=== PATIENT | female | born 1965 | race Caucasian/White ===

== ENCOUNTER 2020-05-15 15:50 | Inpatient (IN) | payer OTHER ==
[~2020-05-15] VITALS: Ht 170.2 cm; Wt 83.8 kg
--- NOTE | ~2020-05-15 | DS ---
[facility] [address] [place], [place] [address] Draft ADMISSION DATE: 05/15/2020 DISCHARGE DATE: 05/22/2020 REASON FOR ADMISSION: This 54-year-old white woman transferred from [facility] with Dr. Marcos Montalvo with a large pelvic mass and ascites. The patient presented to the emergency room in [place] with abdominal pain and fullness and a CT scan was performed by Dr. Montalvo confirming a multiloculated pelvic mass suggestive of right ovary with ascites. She has no prior history of ovarian problem, specifically no ovarian torsion or ovarian cyst. She has no family history of ovarian cancer or uterine cancer. The patient does have dysfunctional menstrual bleeding for quite some time. She has a distant history of tubal ligation as well. She was admitted for further evaluation and care. PERTINENT PHYSICAL EXAMINATION: GENERAL: Showed a pleasant white woman, who did not look systemically toxic. HEENT: Mucous membranes are reasonably moist. Trachea midline. CHEST: Clear. HEART: Regular without murmur. ABDOMEN: Distended and firm, consistent with ascites. She did not have focal tenderness or diffuse peritonitis, but was mildly tender throughout. LABORATORY STUDIES: Showed a white count of 12.4, hematocrit 47, platelets 340,000. Chem profile normal and creatinine 0.9. HOSPITAL COURSE: She was admitted with a strong suspicion of ovarian carcinoma, though other etiologies including ovarian torsion or other problem were considered of course. A CA-125 serum tumor marker was obtained, which was elevated at 74.9. Her diffuse abdominal tenderness and bloating were significant and did improve with IV fluid administration likely related to fluid losses and ultimately, she did undergo paracentesis for symptom control and assessment of the peritoneal fluid. Subsequent evaluation showed no sign of malignant cells within the peritoneal fluid. Given her large mass of the pelvis, which is essentially consumed all of the pelvis and her ascites, which at the time was of uncertain malignancy. Recommendation was made for PATIENT NAME: THAIS MENDEZ DISCHARGE SUMMARY DATE OF : 67 REPORT #: [id number] PHYSICIAN: MADALYN RAMIREZ MD PCP: MARCOS MONTALVO MD REPORT IS CONFIDENTIAL AND NOT TO BE RELEASED WITHOUT AUTHORIZATION [facility] [address], [place] [address] Draft excision of the mass, probable hysterectomy, omentectomy, retroperitoneal lymph node dissection, and other indicated procedures for a presumptive diagnosis of ovarian carcinoma. On May 19, 2020, she underwent exploration of the abdomen, excision of what turned out to be a left giant pelvic mass (ovarian mass) with total abdominal hysterectomy, bilateral salpingo-oophorectomy, omentectomy, cul-de-sac biopsy, collection of peritoneal fluid for cytology, brush biopsy of right hemidiaphragm and retroperitoneal lymph node dissection, mostly in the aortocaval area and infracaval area centrally. Data Specialist was Dr. Winn. 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 Appendectomy was performed as well given that finding. Postoperatively, she had a considerable amount of incisional pain despite a non-opiod approach to her pain management including TAP blocks and other interventions. 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 She had progressive improvement, was begun on clear liquids on 1st postoperative day, which she tolerated well. Progressive intake of an advancement of her diet was noted and by day of discharge, she is ambulating well, passing flatus without problem, has incisional pain, well controlled with both opioid and non-opioid medications and is doing well. The paracentesis cytology showed no evidence of malignant cells, which was somewhat surprising, but we await final pathology of other fluid obtained at time of operation as well. FOLLOWUP PLAN: She is return to see me in approximately 3-4 weeks. She will likely be a candidate for adjuvant chemotherapy depending on the pathologic findings ultimately. She is advised to lift no more than 20 pounds for the next 4 weeks. She is encouraged to ambulate daily. She will leave Steri-Strips on. DISCHARGE DIAGNOSES: 1. 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 2. Status post excision of giant left pelvic mass with total abdominal hysterectomy, bilateral salpingo-oophorectomy, omentectomy, appendectomy, cul-de-sac biopsy, collection of peritoneal fluid for cytology and brush biopsy of right hemidiaphragm and retroperitoneal lymph node dissection. 3. Distant history of tubal ligation. 4. Dysfunctional uterine bleeding. PATIENT NAME: THAIS MENDEZ DISCHARGE SUMMARY DATE OF : 67 REPORT #: [id number] PHYSICIAN: MADALYN RAMIREZ MD PCP: MARCOS MONTALVO MD REPORT IS CONFIDENTIAL AND NOT TO BE RELEASED WITHOUT AUTHORIZATION [facility] [address] [place] [id number] Draft MD BRANDON Garcia/MODL /[id number] cc: Marcos Montalvo MD Copies: MARCOS MONTALVO MD ~ PATIENT NAME: THAIS MENDEZ DISCHARGE SUMMARY DATE OF : 67 REPORT #: [id number] PHYSICIAN: MADALYN RAMIREZ MD PCP: MARCOS MONTALVO MD REPORT IS CONFIDENTIAL AND NOT TO BE RELEASED WITHOUT AUTHORIZATION
--- NOTE | 2020-05-15 17:38 | NUR ---
PT AMBULATES TO MED SURG. ORIENTED TO ROOM CALL LIGHT IN HAND. BOYFRIEND PRESENT IN THE ROOM. PT VERBALIZES UNDERSTANDING NPO.
--- NOTE | 2020-05-15 18:07 | NUR ---
pt resting eyes closed. dr do in to see her
--- NOTE | 2020-05-15 18:30 | NUR ---
DR RAMIREZ IN TO SEE PT DISCUSSES DIAGNOSTIC PLAN GOING FORWARD ALL QUESTIONS ANSWERED, PRESENT IN THE ROOM. PT OKAY'D FOR CLEAR LIQUIDS, BROTH AND JELLO PROVIDED. PAIN 4/ WAITING FOR MD ORDERS
--- NOTE | 2020-05-15 19:00 | NUR ---
RECEIVED CHARGE REPORT FROM [facility]. PT WITH NO NEEDS AT THIS TIME.
--- NOTE | 2020-05-15 19:42 | NUR ---
REPORT RECEIVED FROM DAY SHIFT RN. PT LYING IN BED ALERT AND ORIENTED EATING JELLO. IVF INFUSING. PT DENIES NEEDS AT THIS TIME. WHITE BOARD UPDATED. CALL LIGHT IN REACH.
--- NOTE | 2020-05-15 21:15 | NUR ---
V/S AND I&O TAKEN AND RECORDED. CREAM OF MUSHROOM, VEGETABLE BROTH AND CHOCOLATE PUDDING PROVIDED.
--- NOTE | 2020-05-15 21:30 | NUR ---
EVENING ASSESSMENT COMPLETE. SCHEDULED MEDS ADMINISTERED. PRN ADMINISTERED FOR 5/10 ABD PAIN. PT REPORTS FEELING BLOATED. ABD FIRM AND DISTENDED. BOWEL TONES ACTIVE. DENIES NAUSEA. FULL LIQUIDS PROVIDED. IVF INFUSING PER ORDER. WARM BLANKET PROVIDED. PT DENIES QUESTIONS OR CONCERNS. CALL LIGHT IN REACH.
--- NOTE | 2020-05-15 23:30 | NUR ---
PT RESTING IN BED WITH EYES CLOSED, NAD. RESPIRATIONS EVEN AND UNLABORED.
--- NOTE | 2020-05-16 01:57 | NUR ---
VS AND I&O COMPLETE. PT UP TO BR WITH MINIMAL ASSIST TO VOID 700 ML CONCENTRATED URINE. GAIT STEADY. BACK TO BED, JOSE F [place]. REPORTS PAIN IS TOLERABLE AND DENIES PRN FOR PAIN AT THIS TIME. PUDDING PROVIDED PER REQUEST. IN ROOM. NO FURTHER NEEDS.
--- NOTE | 2020-05-16 04:11 | NUR ---
PT RESTING IN BED WITH EYES CLOSED, NAD.
--- NOTE | 2020-05-16 05:21 | NUR ---
PATIENT PROVIDED WITH BROTH AND PUDDING. VITALS AND I&O COMPLETED. GUEST IN ROOM AND WAS ASKED IF HE NEEDED ANYTHING. GUEST DENIES ANY NEEDS. PATIENT WAS ASKED IF SHE WANTED TO GET GET UP TO USE THE RESTROOM. PATIENT DENIED NEEDING TO USE THE RESTROOM TO VOID. MYRA MUNOZ IN ROOM.
--- NOTE | 2020-05-16 05:35 | NUR ---
VS AND I&O COMPLETE. PT DENIES NAUSEA. PRN ADMINISTERED FOR C/O BACK AND ABD PAIN. BROTH AND PUDDING PROVIDED. ASSESSMENT COMPLETE. ABD REMAINS DISTENDED AND FIRM. BOWEL TONES ACTIVE. SPOUSE IN ROOM. NO FURTHER NEEDS AT THIS TIME. CALL LIGHT IN REACH.
--- NOTE | 2020-05-16 07:27 | NUR ---
this rn received report from rené cerna. pt sitting up in bed with pts next to her. pts a bit tearful this am. pt states that her pain level is good and is planning to go for a walk in a bit
--- NOTE | 2020-05-16 07:32 | NUR ---
pt up doing laps at this time. pt steady on her feet
--- NOTE | 2020-05-16 08:16 | NUR ---
Pt. got up and took a shower independantly. DIRECTOR HARDWARE wrapped IV site. Bed linens changed, room picked up. no other needs at this time. call light with in reach.
--- NOTE | 2020-05-16 08:49 | NUR ---
this rn in pts room with [facility] nursing education specialist mo. pt states that she is feeling bloated in her abdomen at this time. pt states that her pain is well managed at this time. this rn educated pt on the paracentesis produre, pt states understanding and all questions answered at this time.
--- NOTE | 2020-05-16 09:30 | NUR ---
Pt and spouse resting in bed. State they live in [place] in a 2 story home and only use lower floor. Multiple steps down to get to house but have new steps with good hand rails. They have 5 adult children grandchildren. 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 She is worried about her diagnosis, but spouse is very supportive. He is retired and will stay home with pt, complete house hold chores, shop, and transport as needed if pt has surgery. Ultimate plan is for pt to dc to home when she can be discharged.
--- NOTE | 2020-05-16 09:49 | NUR ---
[facility] med student did v/s and I&Os.
--- NOTE | 2020-05-16 11:00 | NUR ---
[facility] GOVERNMENT AFFAIRS SPECIALIST KELLEN IN PTS ROOM TO CHECK ON PT. PT STATES THAT HER PAIN IS TOLERABLE AT THIS TIME. KELLEN ALSO DICUSSED WITH PT THAT WILL BE IN AFTER A BIT.
--- NOTE | 2020-05-16 12:14 | NUR ---
PT RESTING IN BED WITH . PT SAID SHE FEELS MUCH BETTER, REQUESTED TO HAVE HYDRAULIC ROCKBREAKER OPERATOR VISIT TODAY. WILL INFORM FR CHAVEZ. GAVE BLESSING, WILL FOLLOW
--- NOTE | 2020-05-16 12:25 | NUR ---
this rn in pts room with to assist with pt having a paracentesis. pt tolerated well. able to get 2.5l off of pts abdomen.
--- NOTE | 2020-05-16 15:17 | NUR ---
MED REC COMPLETE
--- NOTE | 2020-05-16 16:31 | NUR ---
this rn in to check on pt at this time. pt appears to be resing in bed with respirations noted.
--- NOTE | 2020-05-16 19:00 | NUR ---
CHARGE NURSE REPORT RECEIVED FROM DAY SHIFT. PT IN ROOM, NO NEEDS AT THIS TIME.
--- NOTE | 2020-05-16 19:30 | NUR ---
BEDSIDE REPORT RECEIVED FROM MYRA ARROYO. pt RESTING IN BED. DENIES ANY PAIN. NO REQUESTS AT THIS TIME. IV NOTED TO BE LEAKING, FLUIDS DISCONNECTED. CALL LIGHT IN REACH.
--- NOTE | 2020-05-16 21:00 | NUR ---
pt AMBULATING IN HALLWAY WITH . IVF INFUSING WNL.
--- NOTE | 2020-05-16 21:10 | NUR ---
NEW IV STARTED LEFT FOREARM WNL, pt TOLERATED WELL. UP TO RESTROOM INDEPENDENTLY FOR VOID AND BACK TO BED. IVF INFUSING WNL ORDERED. pt DENIES PAIN AT THIS TIME. ABD DISTENDED, SOFT, BOWEL TONES ACTIVE X 4. DENIES PAIN WITH PALPATION, "IT'S NOT LIKE BEFORE". VSS. CALL LIGHT AND PERSONAL SUPPLIES IN REACH. ICE WATER REFILLED. pt DISCUSSING CA DIAGNOSIS, PLAN WITH THIS RN, POSITIVE OUTLOOK. pt STATES SHE WOULD LIKE TO VISIT WITH BROWN SOURER TOMORROW, GASOLINE TESTER NOTIFIED.
--- NOTE | 2020-05-16 22:26 | NUR ---
CALL LIGHT ANSWERED. SHAILA MARQUEZ AND SHU BALDERAS.
--- NOTE | 2020-05-16 23:37 | NUR ---
CHECKED ON pt. RESTING IN BED WITH , EYES CLOSED, BREATHING UNLABORED. LIGHTS OFF IN ROOM.
--- NOTE | 2020-05-17 00:54 | NUR ---
pt AMBULATING IN HALLWAY INDEPENDENTLY. IVF INFUSING WNL ORDERED. pt DENIES PAIN. JELLO PROVIDED REQUESTED. NO ADDITIONAL NEEDS.
--- NOTE | 2020-05-17 02:09 | NUR ---
CALL LIGHT ANSWERED. IV PUMP ALARMING, DISTAL AIR. IVF NOW INFUSING WNL ORDERED. pt RESTING IN BED ON SIDE. ALSO IN BED. pt APPEARS RELAXED, BREATHING UNLABORED. LIGHTS OFF IN ROOM.
--- NOTE | 2020-05-17 04:59 | NUR ---
pt AMBULATING HALLWAY MULTIPLE TIMES THIS SHIFT INDEPENENDENLY. NO COMPLAINTS OF PAIN. ABD DISTENDED, SOFT, BOWEL TONES ACTIVE, NON TENDER WITH PALPATION. IVF INFUSING WNL THROUGHOUT SHIFT.
--- NOTE | 2020-05-17 06:45 | NUR ---
pt AWAKE WHEN RN ENTERS ROOM. RESTING IN BED WITH . pt RATES PAIN 6/10 IN ABDOMEN AND BACK, PRN MEDICATION ADMINISTERED. BOWEL TONES ACTIVE X 4, ABD SOFT, DISTENDED, TENDER WITH PALPATION. VSS. URINE HAT EMPTIED. JELLO, PUDDING, CRACKERS PROVIDED. IVF INFUSING WNL ORDERED. CALL LIGHT IN REACH.
--- NOTE | 2020-05-17 07:21 | NUR ---
this rn received report from kanwal cerna. pt awake and sitting up in bed. pt states that her pain is well managed this am. pt states that needs nothing at this time and states that no new questions.
--- NOTE | 2020-05-17 08:50 | NUR ---
THIS RN IN PTS ROOM TO GIVE PT HER MORNING MEDS AND DO MORNING ASSESSMENT. PT STATES THAT SHE IS HAVING SOME INCREASED ABDOMINAL PAIN. THIS RN OFFERED PT IV TYLENOL, PT STATES THAT SHE ISN'T READY TO TAKE A MED YET. THIS RN OFFERED PT A HEAT PACK FOR THE PAIN. PT STATED THAT THIS HELPED HER PAIN AND SHE WAS NOT INTERESTED IN ANYMORE PAIN MEDS.
--- NOTE | 2020-05-17 09:01 | NUR ---
PATIENT AWAKE IN BED, IN ROOM. VITALS AND I&OS CHARTED. ES IN TO MOP. CALL LIGHT IN REACH
--- NOTE | 2020-05-17 09:45 | NUR ---
pt up walking halls with her . pt steady on her feet with no problems at this time
--- NOTE | 2020-05-17 10:00 | NUR ---
Spoke with pt while she is walking in the [place]ar[place]. Pt denies c/o.
--- NOTE | 2020-05-17 11:15 | NUR ---
PATIENT SITTING UP IN BED, IN ROOM. PATIENT POSSIBLY INTERESTED IN SHOWER LATER TODAY.
--- NOTE | 2020-05-17 11:41 | NUR ---
this rn provided pt with apple juice, pt stated that she is getting tired of water
--- NOTE | 2020-05-17 12:55 | NUR ---
pt up walking halls at this time with her daughter
--- NOTE | 2020-05-17 13:38 | NUR ---
PT ALERT, ORIENTED AND RESTING IN BED WITH HER . PT IS SNACKING ON CHIPS, SEEMED COMFORTABLE. PT MENTIONED AT SHE IS DOING BETTER. PT WOULD LIKE TO HAVE THE SUBSYSTEMS ENGINEER IN TODAY. INFORMED FR CHAVEZ. GAVE BLESSING, WILL FOLLOW
--- NOTE | 2020-05-17 13:45 | NUR ---
THIS RN IN PTS ROOM WITH TO DISCUSS PTS TREATMENT PLAN. PT STATES UNDERSTANDING OF TREATMENT PLAN AND IS MOTIVATED FOR SURGERY. PT STATES THAT HER PAIN IS WELL CONTROLLED AND THAT SHE PLANS TO GO FOR ANOTHER WALK WITH HER DAUGHTER THIS AFTERNOON. PTS DAUGHTER ASKING IF THERE WAS A CERTAIN NUTRITION FOR PRIOR TO CHEMO IF THAT'S THE ROUTE SHE IS GOING TO GO. THIS RN WILL HAVE LOBITO FROM DIETARY FOLLOW UP WITH PT
--- NOTE | 2020-05-17 15:30 | NUR ---
Spoke with Dr. Chapa. Pt does not want to go out of town for surgery and he has agree to complete surgery on Friday. Pt is very happy with descision.
--- NOTE | 2020-05-17 15:49 | NUR ---
CRUZ LET ME KNOW PATIENT WAS WONDERING ABOUT NUTRITION FOR CANCER TREATMENT. PATIENT MAY END UP NEEDING CHEMO IN THE FUTURE FOR OVARIAN CANCER. HER MAIN QUESTION IS WHAT SHOULD SHE BE EATING IF SHE DOES END UP ON CHEMO. I EXPLAINED THAT CONSUMING ENOUGH PROTEIN IS REALLY IMPORTANT AND TO EAT PROTEIN THROUGHOUT THE DAY INSTEAD OF ONE LARGE AMOUNT ONCE A DAY. SHE LIKES BEEF, EGGS, MILK, COTTAGE CHEESE, AND BEANS. ALSO EXPLAINED TO EAT MORE PLANT-BASED FOODS SUCH GETTING AT LEAST 5 SERVINGS OF A FRUITS/VEGGIES IN EACH DAY AND WHOLE GRAINS FOR MORE NUTRITIONAL VALUE AND FIBER. SHE PREFERS TO AVOID ARTIFICIAL SWEETENERS SO IF SHE DECIDES TO BUY A PROTEIN POWDER SHE WILL NEED TO LOOK AT THE INGREDIENTS SINCE A LOT OF PROTEIN POWDERS IN STORES LOCALLY HAVE ARTIFICIAL SWEETENERS IN THEM. SHE MOST LIKELY WILL NEED TO BUY A PROTEIN POWDER ONLINE. SHE ASKED IF THERE ARE SUPPLEMENTS SHE SHOULD BE TAKING BUT I COULDN'T SPEAK TO THAT SINCE I DON'T KNOW HER WHOLE SITUATION AND PLAN GOING FORWARD. I PROVIDED HER A HANDOUT ON NUTRITION DURING AND AFTER CANCER TREATMENT AND ANOTHER ON ADDING PROTEIN TO FOODS. NO OTHER QUESTIONS AT THIS TIME. WILL REMAIN AVAILABLE IF NEEDED.
--- NOTE | 2020-05-17 17:37 | NUR ---
PATIENT AWAKE IN BED, IN ROOM, BOTH EATING DINNER. VITSL AND I&OS CHARTED. CALL LIGHT AND PERSONAL ITEMS WITHIN REACH
--- NOTE | 2020-05-17 18:55 | NUR ---
THIS RN PROVIDED PT WITH A HEAT PACK FOR COMFORT AT THIS TIME. PT DENIES THE NEED FOR PAIN MEDS.
--- NOTE | 2020-05-17 19:48 | NUR ---
PATIENT WALKING THE HALLS WITH HER , NO NEEDS RIGHT NOW.
--- NOTE | 2020-05-17 20:33 | NUR ---
PATIENT DENIES PAIN OR NAUSEA. PATIENT SITTING IN BED VISITING WITH . CALLED PROFESSOR OF VISUAL ARTS TO GET SOME PUDDING FOR PATIENT. SHOWER SET UP AND LEFT WRIST WRAPPED FOR PATIENT TO TAKE SHOWER. CALL LIGHT IN REACH.
--- NOTE | 2020-05-17 21:48 | NUR ---
BROUGHT PUDDING TO PT'S ROOM. SHE IS FINISHED SHOWERING. UNWRAPPED IV AND IV FLUID IS NOW INFUSING. PT DENIES FURTHER NEEDS. CALL LIGHT IS CLOSE.
--- NOTE | 2020-05-18 00:05 | NUR ---
PATIENT RESTING IN BED EYES CLOSED, RESPIRATIONS REGULAR AND EVEN, PATIENT'S LAYING IN BED WITH HER CALL LIGHT IN REACH.
--- NOTE | 2020-05-18 02:15 | NUR ---
PATIENT WAS UP WALKING AROUND THE UNIT, WENT BACK TO BED, PT HAS BEEN DOING FINE.
--- NOTE | 2020-05-18 03:02 | NUR ---
PATIENT RESTING QUIETLY IN BED, EYES CLOSED, RESPIRATIONS REGULAR AND EVEN, CALL LIGHT IN REACH.
--- NOTE | 2020-05-18 05:15 | NUR ---
PATIENT HAS SLEPT OFF AND ON, PATENT HAS WALKED MULTIPLE LAPS ON 2 DIFFERENT OCCASIONS ON THIS SHIFT AROUND THE UNIT. PATIENT'S HAS REMAINED IN THE ROOM WITH HER. PATIENT DRINKING AND EATING WELL. PATIENT TOOK A SHOWER LAST NIGHT. PATIENT HAS HAD NO PAIN AND VERY FEW NEEDS. PATIENT HAS REMAINED INDEPENDENT IN THE ROOM. CALL LIGHT IS IN REACH.
--- NOTE | 2020-05-18 07:21 | NUR ---
0700: Report received from Jayesh RENTERIA. Pt resting in her bed with no complaints or needs at this time, call adela within reach.
--- NOTE | 2020-05-18 09:20 | NUR ---
PT RESTING IN HER BED AND SHE STATES SHE HAS ABD PAIN AT A 4 WHICH IS ACCEPTABLE AND SHE DENIES ANY NAUSEA OR OTHER PROBLEM. PT STATES HER PAIN IS MUCH BETTER THAT IT WAS WHEN SHE CAME HERE. ASSESSMENT COMPLETED.
--- NOTE | 2020-05-18 10:21 | NUR ---
Pt resting in her room and she denies any needs at this time.
--- NOTE | 2020-05-18 13:21 | NUR ---
PT STATES HER ABD PAIN IS A 1/10 AND THIS IS ACCEPTABLE TO HER. SHE WALKED ABOUT 6 LAPS IN THE HALLS WITH HER DAUGHTER AND IS NOW RESTING IN HER BED. SHE DENIES ANY NEW PROBLEMS. SEE ASSESSMENT.
--- NOTE | 2020-05-18 13:27 | NUR ---
PT ALERT, ORIENTED AND JUST FINISHING UP PHONE CALL. PT STSTED SHE WILL HAVE SURGERY FRI, SEEMS AT [place] WITH THIS DECISION. PT MENTIONED THAT HER DAUGHTER IS COMING IN AND THIS SEEMED TO CHEER HER. PT REQUESTED A VISIT FROM THE COMPRESSOR SERVICE TECHNICIAN TODAY. INFORMED FR VAUGHAN. GAVE BLESSING AND HAD PRAYER WITH PT. WILL FOLLOW
--- NOTE | 2020-05-18 16:21 | NUR ---
Pt resting in her bed and she denies any pain or problems.
--- NOTE | 2020-05-18 17:26 | NUR ---
Cherise was talked to about the visitor policy and she raised her voice and states "I can't be alone". She states she will walk to the front door if she has too and she will not sit in her room by herself. Her spouse states he will be here and that she is not leaving. The pt continues to have a raised voice and she states, "I'm pissed you left me here by myself", she was speaking to her spouse. Pt remains "Pissed" and she states a walk may help her and she got up and is walking in the halls at this time.
--- NOTE | 2020-05-18 17:45 | NUR ---
Pt returned from her walk and she is heard yelling and cussing in her room with the door closed and her spouse in the room. The charge nurse was notified and security was called. Security is outside the room in the [place]arcon at this time.
--- NOTE | 2020-05-18 17:54 | NUR ---
Dr Xavier called and updated to the recent events.
--- NOTE | 2020-05-18 18:02 | NUR ---
RT COLLECTED COVID 19 SWAB WITH NO COMPLICATIONS. RT USED THE CEPHEID RAPID TEST THROUGH [facility] PER DR REQUEST AT THIS TIME.
--- NOTE | 2020-05-18 19:00 | NUR ---
REPORT RECEIVED FROM ISH RENTERIA. PT HAS NO NEEDS AT THIS TIME, SPOUSE AT BEDSIDE. WILL CONTINUE TO MONITOR
--- NOTE | 2020-05-18 20:05 | NUR ---
SCHEDULED MEDICATIONS ADMINISTERED, PT REQUESTS TO TAKE SHOWER, IV WRAPPED. SPOUSE IN ROOM. MADE PLAN WITH PT FOR EVENING ROUTINE. CALL LIGHT IN REACH, NO OTHER NEEDS AT THIS TIME.
--- NOTE | 2020-05-18 21:00 | NUR ---
IN RM TO GET PT VITALS, MEASUREMENT AND VERIFICATION ENGINEER IN RM FOR IV, PT IS BACK FROM THE SHOWER, PUDDING PROVIDED, NO FURTHER NEEDS AT THIS TIME
--- NOTE | 2020-05-18 21:12 | NUR ---
PT IS DONE TAKING HER SHOWER. NEW BAG OF LR IS NOW INFUSING. PT REPORTS HAVING A BAD DAY AND STATES SHE IS STRESSED. PT ASKED FOR AN ADVANCED DIRECTIVES PACKET THAT SHE WILL COMPLETE ALONG WITH ONE FOR HER . CLEANED UP ROOM A BIT AND PT DENIES FURTHER NEEDS.
--- NOTE | 2020-05-18 21:15 | NUR ---
ROUNDED ON PATIENT, SITTING UP ON COUCH WITH SPOUSE. IVF INFUSING WNL. PT STATES NO NEEDS.
--- NOTE | 2020-05-18 23:57 | NUR ---
ROUNDED ON PATIENT, HER AND SPOUSE BOTH SLEEPING ON COUCH. NO APPARENT NEEDS AT THIS TIME. IVF INFUSING. CALL LIGHT IN REACH.
--- NOTE | 2020-05-19 02:04 | NUR ---
ROUNDED ON PATIENT, ON COUCH WITH SPOUSE, RESTING W EYES CLOSED. IVF INFUSING WNL. CALL LIGHT IN REACH, NO APPARENT NEEDS AT THIS TIME.
--- NOTE | 2020-05-19 04:34 | NUR ---
ROUNDED ON PATIENT, RESTING ON THE COUCH WITH SPOUSE. IVF INFUSING WNL. NO NEEDS AT THIS TIME. WILL CONT TO MONITOR.
--- NOTE | 2020-05-19 06:00 | NUR ---
VITALS AND I/O'S COMPLETE, LR ON STRAIGHT TUBING IN ROOM. PRE PROC CHECKLIST INITIATED. PT RESTING ON COUCH WITH SPOUSE, IVF INFUSING WNL. NO NEEDS AT THIS TIME. CALL LIGHT IN REACH
--- NOTE | 2020-05-19 08:13 | NUR ---
Lying in bed, on side. Eyes closed. Respirations even and unlabored. Call light in reach. Bed rails up X2.
--- NOTE | 2020-05-19 08:32 | NUR ---
Assessment completed. Educated for need to complete surgical wipe down with instructions, verbal and written given. New, clean gown provided as well. Verbalizes understanding. AM medcations given as scheduled. Denies pain this AM. Spouse at bedside. Call light in reach. Bed rails up X2. Denies other needs.
--- NOTE | 2020-05-19 09:40 | NUR ---
Patient taken to surgery by Michelle Coats RN/Surgery, via bed.
--- NOTE | 2020-05-19 11:27 | NUR ---
PT HAS BEEN TAKEN TO OR FOR SURGERY. NO FAMILY WAITING IN RM. WILL FOLLOW
--- NOTE | 2020-05-19 14:49 | NUR ---
05/19/20 Zeina9 Janki Mcclellan 1438 PATIENT ARRIVES TO PACU UNRESPONSIVE TO PAIN. OCCASIONAL JAW THRUST FOR AIRWAY SUPPORT. MASK AT 6 LITERS. 1445 PATIENT CONTINUES TO BE UNRESPONSIVE TO PAIN. RESP EVEN AND UNLABORED, MASK CONTINUES AT 6 LITERS.
--- NOTE | 2020-05-19 16:30 | NUR ---
Patient arrives from PACU in bed with MYRA Shearer. Patient states multiple times pain in abdomen. Unable to rate, states it hurts a lot. IV fluids changed to LR at 85 mL/hr by pump, Toradol given as prescribed. Assessment completed. Spouse at bedside.
--- NOTE | 2020-05-19 17:04 | NUR ---
Rating pain 9/10. Dressing remains intact. Vitals WNL.
--- NOTE | 2020-05-19 17:06 | NUR ---
PATIENT LETHARGIC BUT EASY TO AWAKE. REPORTS PAIN LEVEL 9/10 AFTER TORADOL GIVEN AN HOUR AGO. WATER AND ICE CHIPS GIVEN. CLEARS DINNER TRAY ORDERED. DRESSING INTACT. SPOUSE AT THE BEDSIDE. CALL LIGHT WITHIN REACH. ICE PACKS OFFERED, PATIENT REFUSED. REMAINS LETHARGIC AND ON 2L O2. WILL CONTINUE TO MONITOR.
--- NOTE | 2020-05-19 17:50 | NUR ---
CONTINUES TO STATE, "IT HURTS SO BAD." MULTIPLE TIMES WHILE STAFF IN ROOM. CONTINUES RATING PAIN 10/10. YELLING OUT "OW" WELL, CAN BE HEARD AT NURSE'S STATION. DR. RAMIREZ NOTIFIED. TELEPHONE ORDERS READ BACK DR. RAMIREZ/Chad CALERORN FOR MORPHINE 2MG IV X1 NOW. PATIENT NOTIFIED OF ORDER.
--- NOTE | 2020-05-19 18:08 | NUR ---
Continues to complain of pain. Analgesic administered. On room air at this time. Vitals obtained. Tolerating clear liquids. Dressing remains clean, dry and intact.
--- NOTE | 2020-05-19 18:34 | NUR ---
States pain is improving. "It's not good, but it's better." Denies other needs at this time. Continues to tolerate clear liquids at this time.
--- NOTE | 2020-05-19 19:20 | NUR ---
REPORT RECEIVED FROM ANGLE RENTERIA. PT RESTING IN BED, STATES PAIN IS "RAMPING UP" AT THIS TIME. PRN MEDS HAD BEEN GIVEN AT 1800. BRANCH ASSOCIATE IN ROOM TO TAKE VITALS. AT BEDSIDE. CALL LIGHT IN REACH, WILL CONTINUE TO MONITOR
--- NOTE | 2020-05-19 19:29 | NUR ---
PTS TO RN STATION, STATES THAT PT IS HAVING UNCONTROLLED PAIN. PT CAN BE HEARDING MOANING AUDIBLY FROM RN STATION. PT THEN UTILIZES CALL LIGHT, IS GRIMACING AND CRYING IN PAIN. RATES PAIN 10/10. PRIMARY RN NOTIFIED. PRN TO BE ADMINISTERED. CALL LIGHT IN REACH.
--- NOTE | 2020-05-19 19:40 | NUR ---
PT STATING 10/10 PAIN, MOANING AND YELLING OUT TO NURSES STATION FREQUENTLY. DR RAMIREZ PHONED, NEW ORDER FOR MORPHINE DITCH REPAIRER RECEIVED, READ BACK TO CLARIFY.
--- NOTE | 2020-05-19 19:59 | NUR ---
IN TO [facility], DENTAL LABORATORY ASSISTANT IN WELL, PICKED UP 'S DINNER TRAY, PT WASN'T DONE WITH HER TRAY, NO FURTHER NEEDS AT THIS TIME
--- NOTE | 2020-05-19 20:30 | NUR ---
SCHEDULED MEDICATIONS ADMINISTERED. PT CONTINUES TO C/O PAIN, REPOSITIONED, WARM BLANKETS PROVIDED, AWAITING VERIFICATION OF AUTO BATTERY BUILDER ORDER. AT BEDSIDE, ENGAGED IN CARE. GOMEZ CARE COMPLETE, WNL. PT ON RA, CPOX IN PLACE, AT 96%. SCDS ON. CALL LIGHT IN REACH.
--- NOTE | 2020-05-19 21:25 | NUR ---
CONTRACTS SPECIALIST PUMP SET UP. PT EDUCATED ALONG WITH . VERIFIED WITH STILL CLEANER. CALL LIGHT IN REACH, WILL CONTINUE TO MONITOR.
--- NOTE | 2020-05-19 22:11 | NUR ---
SCHEDULED MEDICATIONS ADMINISTERED. PT CONTINUES TO C/O PAIN, REPOSITIONED, WARM BLANKETS PROVIDED, AWAITING VERIFICATION OF DIABETES EDUCATION COORDINATOR ORDER. AT BEDSIDE, ENGAGED IN CARE. GOMEZ CARE COMPLETE, WNL. PT ON RA, CPOX IN PLACE, AT 96%. SCDS ON. CALL LIGHT IN REACH.
--- NOTE | 2020-05-19 22:21 | NUR ---
ROUNDED ON PATIENT. IN BED WITH EYES CLOSED, BREATHING REGULAR. OPENS EYES TO VOICE, STATES PAIN IS "BETTER". AT BEDSIDE. STATES NO NEEDS. WILL CONTINUE TO MONITOR.
--- NOTE | 2020-05-20 00:05 | NUR ---
CALL LIGHT ANSWERED, PT STATES POTATO CHIP COOKER MACHINE NOT WORKING, MAX DOSE REACHED. PT EDUCATED REGARDING LOCKOUT DOSAGE AND TIMING OF MEDS. PT REPORTS 4/10 PAIN CURRENTLY BUT STATES "ITS NOTHING LIKE IT WAS". STATES NO OTHER NEEDS AT THIS TIME, CALL LIGHT IN REACH.
--- NOTE | 2020-05-20 01:52 | NUR ---
MANAGER DRUG SYRINGE CHANGED, PT REPORTS 4/10 PAIN CURRENTLY BUT STATES IT IS TOLERABLE. SCHEDULED MEDS ADMINISTERED. TECHNOLOGY INFUSION SPECIALIST IN ROOM FOR VITALS. PT REPORTS NO OTHER NEEDS AT THIS TIME.
--- NOTE | 2020-05-20 01:59 | NUR ---
IN TO GET 2 AM VITALS, NO FURTHER NEEDS
--- NOTE | 2020-05-20 02:45 | NUR ---
Rounded on patient. Resting in bed with eyes closed. Breathing is even and unlabored, MANUFACTURING ENGINEERING MANAGER pump working WNL. IVF infusing WNL. CPOX in place, 95% on RA. Call light in reach.
--- NOTE | 2020-05-20 04:21 | NUR ---
Call light answered, IV pump alarming, new bag IVF hung. Assessment complete. Pt states pain 2/10, midline visualized, dressing C/D/I. Abdomen tender but pt states tolerable. CPOX in place, reading at 96% on RA. Pt demonstrating competency using COAT CHECK ATTENDANT. Call light in reach
--- NOTE | 2020-05-20 05:14 | NUR ---
IN TO GET PT VITALS WITH RN, PATRICIA EMPTIED AT THIS TIME, TOOK PT's LEFTOVER DINNER TRAY OUT, PT PROVIDED WITH A JELLO, NO FURTHER NEEDS AT THIS TIME
--- NOTE | 2020-05-20 06:01 | NUR ---
VITALS AND I/OS COMPLETE. PATIENT HAS BEEN USING BURR PICKER PUMP, STATES PAIN IS COMPLETELY TOLERABLE NOW. IVF INFUSING WNL. VSS. MIDLINE INCISION COVERED WITH ACTECOTE, C/D/I. CALL LIGHT IN REACH, AT BEDSIDE
--- NOTE | 2020-05-20 06:14 | NUR ---
Pt had reported severe 10/10 pain at start of shift, MD called, orders for CUTTER MACHINE TENDER pump received. Pt now reports 2/10 tolerable discomfort, resting in bed. Midline incision covered with Actecote, C/D/I. ABD tender, bowel tones active. CPOX in place, 90-96% on RA. IVF infusing WNL. SCDS on. Tolerating clear liquid diet. in room. Calls appropriately.
--- NOTE | 2020-05-20 07:25 | NUR ---
Report from MYRA Jaramillo. Patient awake in bed. Denies needs at this time. States she is very tired and feels weak. Informed goal is to get up SRINATH and walk this AM. Verbalizes understanding. Call light in reach. Bed rails up X2, spouse at bedside.
--- NOTE | 2020-05-20 07:43 | NUR ---
Recieved report from maintenance technician 3rd shift RN. Patient resting in bed with no complaints of pain at this time. Spouse at the bedside and the call light is within reach. Patient agreed to walk this morning before 0900. Will assess further progress at that time.
--- NOTE | 2020-05-20 09:57 | NUR ---
Patient attempted amublating at 0850. Upon sitting at the edge of the bed became nauseated and lightheaded. Patient reported dizziness at this time. Zofran administered per PRN order for nausea. Patient was able to walk into the hallway but could only tolerate a few steps before turning around and needing to rest. Patient desat to 85% O2 on room air. 1L O2 administered, patient sats only increased to 88%. Currently maintaining O2 saturation between 93%-95% on 2L O2. Assessment completed. Patient reports pain level on 06/28. Pain management goal currently achieved. Dressing intact with scant amount of drainage. Patient able to tolerate slight abdominal palpation. Patient resting quietly in bed with clears breakfast tray. Call light within reach. CAN REPAIRER control within reach. Denies any further needs at this time.
--- NOTE | 2020-05-20 10:57 | NUR ---
Patient resting in bed quietly with spouse at the bedside. Reports "feeling tired and just wanting to sleep". Reports no other needs at this time. Call light within reach. Bedrails up x2. EXCHANGE TELLER control within reach. Will continue to monitor.
--- NOTE | 2020-05-20 11:32 | NUR ---
Sitting up in bed for lunch. Spouse at bedside. Denies other needs. Call light in reach. Bed rails up X2.
--- NOTE | 2020-05-20 14:09 | NUR ---
Sitting up in bed, attempting to take in lunch. States pain is a 3. Denies other needs.
--- NOTE | 2020-05-20 14:15 | NUR ---
Patient currently sitting up in bed eating the rest of lunch. Assessment completed. Dressing intact with scant drainage. Tolerates gentle abdominal palpation. Bowel tones active. Patient reports pain goal of a 3 and states that current pain level is 3/10. Patient expresses tadeo that desired goal for pain is being achieved and is beginning to use the FORGING PRESS LEVER TENDER less often. Patient agreees to go on another walk with staff this afternoon. Call light within reach. Bedrails up x2. FORGING PRESS LEVER TENDER control within reach. Patient denies further needs at this time.
--- NOTE | 2020-05-20 14:59 | NUR ---
Uses call light to voice concern about IV. IV site to left wrist assessed, WNL. Old drainage under dressing noted. Call light in reach, bed rails up X2.
--- NOTE | 2020-05-20 16:11 | OR ---
[facility] [address] [place], [place] [address] Signed DATE OF OPERATION: 05/15/2020 SURGEON: Madalyn Ramirez MD PREOPERATIVE DIAGNOSIS: Giant pelvic mass with ascites. 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 PROCEDURE: Exploration of abdomen, excision of left giant pelvic mass with total abdominal hysterectomy with bilateral salpingo-oophorectomy, omentectomy, cul-de-sac biopsy, collection of peritoneal fluid for cytology, brush biopsy of right hemidiaphragm, retroperitoneal lymph node dissection, and appendectomy. SAP BODS DEVELOPER: Tomas Winn DO ANESTHESIA: General endotracheal; Cat Pope CRNA and postoperative TAP blocks. INDICATION: This 54-year-old white woman is a patient of Dr. Marcos Montalvo. She presented to the hospital in [place] with abdominal pain and bloating and distention. She was admitted to the hospital and evaluation by Dr. Montalvo included a CT scan of the abdomen which showed a large complex pelvic mass, thought likely to be a right adnexal mass. Considerable amount of ascites was noted as well. She was referred and transferred for further evaluation and care. Evaluation in [place] included obtaining a CA-125 level which was 74.9 as well as paracentesis for relief of her symptoms and for the diagnosis. Preliminary results of the cytology did not show malignancy. A CT scan did not show obvious peritoneal studding, omental cake or other particular abnormalities other than the complex mass and ascites. Careful consideration has been made to the etiology of the problem and most likely represents ovarian cancer. I have advised debulking of the tumor, staging laparotomy and other indicated procedures. Electronically Signed By: MADALYN RAMIREZ MD 05/20/20 1611 PATIENT NAME: THAIS MENDEZ OPERATIVE REPORT DATE OF : 67 REPORT #: [id number] PHYSICIAN: MADALYN RAMIREZ MD PCP: MARCOS MONTALVO MD REPORT IS CONFIDENTIAL AND NOT TO BE RELEASED WITHOUT AUTHORIZATION [facility] [address], [place] [address] Signed The patient is premenopausal. She has had dysfunctional uterine bleeding episodically for quite some time including prolonged and protracted menstrual periods, which was ongoing when she presented on this occasion as well. I have discussed with her the recommendation of excision of the mass and probable hysterectomy, omentectomy, staging including lymph nodes, biopsies, and so on. She strongly prefers to remain local rather than proceed to HEMATOLOGIST oncologist, though it has been offered on more than one occasion. The risk of bleeding, infection, ureteral injury, failure to cure, need for additional medication (chemotherapy), and so forth were reviewed in detail with the patient and her . They understand and wished to proceed. FINDINGS: She had less peritoneal fluid than prior to paracentesis no doubt. There was no evidence of carcinomatosis proper. The pelvic mass itself was multilobulated but generally smooth in texture and somewhat adherent to the deep pelvic peritoneum. The mass was excised without rupture. There appeared to be somewhat granular texture of the retrouterine pouch of Yuan, which was biopsied, though there was no gross disease there. Complete hysterectomy was undertaken. Lymph nodes were dissected free between the right common iliac and vena cava and more centrally in the infra-aortic bifurcation area tending towards the left. Dissection was not carried to the duodenum on the left side, particularly. There was no evidence of pathologic adenopathy anyway. The omentum was not grossly involved in neoplasm though an infracolic omentectomy was undertaken as well as part of staging and brush biopsy of right hemidiaphragm uptake obtained. The liver appeared normal and the right hemidiaphragm had no suspicious nodules on its surface either. Frozen pathology confirmed "carcinoma" and possibly a mucinous carcinoma. On that basis, appendectomy was additionally performed. DESCRIPTION OF PROCEDURE: The patient was brought to the operating room, given a general endotracheal anesthetic. Preoperative antibiotic cefoxitin was given. Sequential compression device stockings were used and heparin subcutaneously administered. Bimanual pelvic exam showed no palpable abnormality of the vagina or the cervix itself. The large mass was ballotable. It extended about 4 fingerbreadths below the umbilicus itself. The abdomen was prepared with a chlorhexidine solution and draped sterilely. A midline incision was made extending above the umbilicus to the symphysis pubis. Dissection carried through the subcutaneous tissue and the midline fascia incised. The abdomen was entered and some turbid fluid was noted. It was not bloody. Some sample of that fluid was obtained for cytology, though she has undergone a paracentesis already as noted. Electronically Signed By: MADALYN RAMIREZ MD 05/20/20 1614 PATIENT NAME: THAIS MENDEZ OPERATIVE REPORT DATE OF : 67 REPORT #: [id number] PHYSICIAN: MADALYN RAMIREZ MD PCP: MARCOS MONTALVO MD REPORT IS CONFIDENTIAL AND NOT TO BE RELEASED WITHOUT AUTHORIZATION [address] [address] Signed Palpation revealed the mass to be multilobulated, relatively smooth on its surface and extending deep into the pelvis. It occupied essentially all the pelvis. Although it was thought initially to be a right adnexal mass, in fact it improved to be in the origin of the left adnexa (ovary). Examination of the upper abdomen showed no sign of carcinomatosis. The small bowel was normal. The omentum has minimal nodularity to it, but certainly no omental caking proper. The right hemidiaphragm was normal by palpation and visualization. The liver was normal. A Bookwalter retractor was affixed to the table. The small bowel was packed superiorly and also to the left with laparotomy pads. Manipulation of the mass was such that its origin was from the left adnexa. The right adnexa appeared to be normal including the fallopian tube and the ovary itself. The ovary was atretic. There appeared to be possibly a plastic ligation device to it. The infundibulopelvic ligament in relation to the left ovary and the bulky mass was isolated and doubly secured with 0 silk ties and divided. Additional dissection of the broad ligament was undertaken ultimately freeing the left ovary in continuity with the bulky mass. With various manipulations in the pelvis, it was gently freed and rocked out of the abdomen and passed for frozen pathology. Evaluation of the pelvis showed uncertainty as to cul-de-sac metastatic disease, it was not obvious particularly. There was mild oozing in the area and a laparotomy pad was packed into the pelvis. Straight Jenni clamps were applied to the horn of the uterus bilaterally. Mindful of the lesion most likely was malignant and given her underlying menometrorrhagia as well, hysterectomy was deemed advisable. The round ligament was isolated on the right and subsequently the left and divided and the broad ligament divided. The right ureter was easily identified in the retroperitoneum passing over the right iliac artery. Bilateral symmetric dissection was undertaken throughout. Jenni clamps were applied to the lower uterine segment applied out of harm's way of the ureters and secured with 0 silk ties sequentially. Straight Jenni clamps were used to divide the paracervical tissue, staying close to the cervix itself and securing the pedicles with 0 Vicryl suture. Stay stitches were applied to the lateral corners of the vagina. Cardinal ligaments were divided and palpation could easily discern the cervix. The vaginal cuff was transected with a margin of at least 2 cm showing no sign of pathologic finding of the cervix itself. Eehbop-oc-hlxuh sutures were used to secure the vaginal cuff. By this point, the pathology report did return describing the large pelvic mass as "carcinoma." Discussion Electronically Signed By: MADALYN RAMIREZ MD 05/20/20 1611 PATIENT NAME: THAIS MENDEZ OPERATIVE REPORT DATE OF : 67 REPORT #: [id number] PHYSICIAN: MADALYN RAMIREZ MD PCP: MARCOS MONTALVO MD REPORT IS CONFIDENTIAL AND NOT TO BE RELEASED WITHOUT AUTHORIZATION [address] [address] Signed with the pathologist (Dr. Saez) indicated most likely mucinous carcinoma. The pelvis was packed with dry laparotomy pads and attention turned towards elsewhere. Given the probable mucinous nature of the lesion, appendectomy was deemed advisable. The mesoappendix was isolated and secured with a hemostat, divided and secured with 3-0 silk tie. The base of the appendix was milked distally and the crush eliane ligated with a 2-0 Vicryl suture. The appendix was amputated. The stump cauterized and inverted. A Z-stitch of 3-0 silk suture was used to invert the stump. Careful inspection of the retroperitoneum showed no particular adenopathy. Still given the nature of the pathology of ovarian carcinoma, retroperitoneal lymph node tissue was obtained. The right colon was incised mobilizing the cecum superiorly and the peritoneal incision taken transversely exposing well the vena cava, the aorta, the right common iliac and the right ureter which was kept out of harm's way. Dissection was taken between the vena cava and the right iliac artery excising retroperitoneal lymph tissue. Clips were applied as necessary. Reasonably generous specimen was excised. Attention was then turned towards the bifurcation of the aorta. Lymph tissue noted in the central portion between the iliacs was additionally dissected free, also using the clips as required. This dissection tended towards the left iliac and artery and vein as well. Palpation more cephalad to the duodenum showed no pathologic abnormality and additional dissection was not done. Some Arabella was applied to the retroperitoneal tissue for its hemostatic benefit and the peritoneum reapproximated with interrupted 2-0 Vicryl loosely. Omentectomy is then performed using sequential application of hemostats and securing the vascular pedicles with 3-0 silk ties. The infracolic omentum was excised and labeled as "infracolic omentum." A biopsy brush was used to sample the right hemidiaphragm and placed in CytoLyt solution. Reinspection of the pelvic peritoneum and the cul-de-sac was undertaken. A segment of perineum was excised as biopsy for further examination. Small amount of raw surface in the low pelvis was noted, although Arabella had been applied to it. Additional measures were deemed advisable and Tisseel was applied to those areas with good hemostatic effect. The abdomen was irrigated with saline solution. Reinspected particularly in the retroperitoneum showing no sign of ongoing bleeding or other problem. The small bowel was returned to the abdomen in an anatomic configuration and plans made for closure. Electronically Signed By: MADALYN RAMIREZ MD 05/20/20 3949 PATIENT NAME: THAIS MENDEZ OPERATIVE REPORT DATE OF : 67 REPORT #: [id number] PHYSICIAN: MADALYN RAMIREZ MD PCP: MARCOS MONTALVO MD REPORT IS CONFIDENTIAL AND NOT TO BE RELEASED WITHOUT AUTHORIZATION [facility] [address] [place] [id number] Signed The midline fascia was reapproximated with running bidirectional #1 PDS suture. Subcutaneous tissue irrigated and skin closed with running subcuticular 3-0 Vicryl. Steri-Strips were applied as was a silver sponge dressing. The patient was ultimately extubated after undergoing a bilateral TAP block for postoperative analgesia. Sponge, needle, and instrument counts were reported as correct x3. Blood loss was estimated at 100 mL. MD BRANDON Garcia/ROSALIOL /[id number] cc: MD Tomas Gong DO Copies: MARCOS MONTALVO MD, JAMES D DO ~ Electronically Signed By: MADALYN RAMIREZ MD 05/20/20 1611 PATIENT NAME: THAIS MENDEZ OPERATIVE REPORT DATE OF : 67 REPORT #: [id number] PHYSICIAN: MADALYN RAMIREZ MD PCP: MARCOS MONTALVO MD REPORT IS CONFIDENTIAL AND NOT TO BE RELEASED WITHOUT AUTHORIZATION
--- NOTE | 2020-05-20 16:11 | HP ---
[facility] [address] [place], [place] [address] Signed ADMISSION DATE: 05/15/2020 REASON FOR ADMISSION: Large right ovarian cystic mass, ascites, and pain. HISTORY OF PRESENT ILLNESS: This 54-year-old white woman is from [place], [place] is accompanied by her . She presented to [facility] with complaints of diffuse abdominal pain. She had an episode of diffuse abdominal pain nearly a year ago, which resolved on its own. She has no nausea, vomiting, diarrhea, and only minimal nausea. Her evaluation at [facility] included CT scan of the abdomen, which showed a cystic mass of the right ovary with a fair amount of intraabdominal ascites. I was called by Dr. Montalvo and accepted the patient in transfer for further management of this problem. The patient has no prior history of ovarian problem, specifically an ovarian torsion or ovarian cyst that she is aware of. She has no family history of ovarian cancer or uterine cancer. The patient has had "uterine polyps" as manifest by dysfunctional uterine bleeding. She notes a progressive dysfunctional uterine bleeding over the past year or so. She is currently on her menstrual period at this time in fact. Her lab studies that have been obtained in [place] showed a normal hematocrit of 47. I see no evidence of beta-hCG having been obtained. Her Chem profile was essentially normal. Bilirubin slightly elevated at 1.9, amylase low at 26, and lipase low at 12. PAST MEDICAL HISTORY: Does include smoking, though she quit about a year ago in response to some grand children being born. ALLERGIES: She is known to have allergy to phenobarbital. REVIEW OF SYSTEMS: She denies any shortness of breath or chest pain. Her pain is not too much when lying in semi-recumbent position. Movement causes more abdominal pain. SOCIAL HISTORY: She has 5 grown children and 3 great grandchildren. 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 She and her live in [place]. PHYSICAL EXAMINATION: Electronically Signed By: MADALYN RAMIREZ MD 05/20/20 1611 PATIENT NAME: THAIS MENDEZ HISTORY AND PHYSICAL DATE OF : 67 REPORT #: [id number] PHYSICIAN: MADALYN RAMIREZ MD PCP: MARCOS MONTALVO MD REPORT IS CONFIDENTIAL AND NOT TO BE RELEASED WITHOUT AUTHORIZATION [facility] [address] [place] [id number] Signed GENERAL: A pleasant white woman, who does not look systemically toxic and not in particularly significant distress at this time. HEENT: Mucous membranes reasonably moist. Trachea is midline. CHEST: Clear. HEART: Regular without murmur. ABDOMEN: Somewhat distended and firm, consistent with ascites. She does not have focal tenderness nor does she have diffuse peritonitis. EXTREMITIES: Show no clubbing, cyanosis, or edema. LABORATORY DATA: From the [place] was from today, which showed a white count of 12.4, hematocrit of 47, platelets of 340,000. Chem profile normal as previously noted. Creatinine is 0.9. ASSESSMENT: The interpretation of the CT scan described an 11 cm pelvic cystic mass with calcifications in the wall and extensive ascites, some calcification near the diaphragm on the left side. Concern is maintained on my behalf that she has ovarian cancer with ascites. The possibility of a large ovarian cyst with torsion accounting for pain is a consideration as well of course, but it does not have that appearance according to the radiologist. I have asked the Radiology department to "boot up" images, so I can review them here locally and that is still pending. She does not need an emergency operation at this time. The greatest concern is that she has ovarian cancer. We will obtain a CA-125 this evening and consideration might be made for paracentesis even with cytology tomorrow. Her progressive menometrorrhagia is a sign of a uterine problem, which likely would be distinct from current problem of the ovarian cystic mass. If this does become more clearly that of ovarian cancer proper, we would offer abdominal hysterectomy with bilateral salpingo-oophorectomy, omentectomy, tumor debulking, and retroperitoneal lymph node biopsies as appropriate. We discussed that in detail as well. Madalyn Ramirez MD JM/MODL Electronically Signed By: MADALYN RAMIREZ MD 05/20/20 1611 PATIENT NAME: THAIS MENDEZ HISTORY AND PHYSICAL DATE OF : 67 REPORT #: [id number] PHYSICIAN: MADALYN RAMIREZ MD PCP: MARCOS MONTALVO MD REPORT IS CONFIDENTIAL AND NOT TO BE RELEASED WITHOUT AUTHORIZATION [facility] [address] [place], [place] [address] Signed /[id number] cc: Marcos Montalvo MD Copies: MARCOS MONTALVO MD ~ Electronically Signed By: MADALYN RAMIREZ MD 05/20/20 1611 PATIENT NAME: THAIS MENDEZ HISTORY AND PHYSICAL DATE OF : 67 REPORT #: [id number] PHYSICIAN: MADALYN RAMIREZ MD PCP: MARCOS MONTALVO MD REPORT IS CONFIDENTIAL AND NOT TO BE RELEASED WITHOUT AUTHORIZATION
--- NOTE | 2020-05-20 16:26 | NUR ---
Patient ambulates in alarcon with standby assist. Returns to room. This nurse present as student nurse DC's saunders catheter.
--- NOTE | 2020-05-20 16:28 | NUR ---
Patient ambulated standby assist in halls and completed one full lap around the unit. Reports pain increased to 5/10 with actvity. COASTAL TUG MATE control left within reach. Maintaining O2 saturation of 96% on room air. Fleming catheter removed and was intact. Diet advanced from clears to full liquid with hopes of transitioning to PO pain medications. Dinner tray ordered, patient back to bed with call light within reach. Bed rails up x2. Patient denies further needs at this time.
--- NOTE | 2020-05-20 17:55 | NUR ---
Patient in bed with spouse at the bedside and is beginning to work on dinner. Patient denies needs at this time. Patient denies needs to use the bathroom but has agreed to try voiding after eating dinner. Call light within reach. Bedrails up x2. Will continue to monitor.
--- NOTE | 2020-05-20 18:14 | NUR ---
Ambulated in hallway 3 times today with standby assist, walking further each time. IV fluids continue infusing, remains on Morphine via SEWAGE TREATMENT PLANT OPERATOR with total in of 20 mg during the shift. Pain controlled. Tolerating full liquid diet. Fleming catheter DC'd, no UO since removal at approximately 1630. On room air. Dressing over midline abdominal incision remains clean, dry and intact. SCD's when in bed.
--- NOTE | 2020-05-20 18:33 | NUR ---
Patient ambulated to restroom and voided 150 without difficulty since removal of FC. Currently in bed and working on finishing dinner. Dressing intact with scant amount of drainage. Reports pain level 6/10 after activity. O2 sats 91% on room air. Call light within reach. ATM MECHANIC control within reach. Spouse at the bedside. Bedrails up x2.
--- NOTE | 2020-05-20 19:30 | NUR ---
PT LYING IN BED. SHIFT REPORT RECIEVED BY RN. WHITE BOARD CLEARED. CALL LIGHT IN REACH.
--- NOTE | 2020-05-20 20:47 | NUR ---
CALL LIGHT ANSWERED. SBA TO RESTROOM FOR VOID, GAIT STEADY, MINIMAL ASSIST OUT OF BED FROM . IVF INFUSING WNL. PRIMARY RN IN ROOM TO ASSESS PAIN. pt REQUESTING TO WALK IN HALLWAY FIRST. AMBULATING WITH SBA AT THIS TIME.
--- NOTE | 2020-05-20 21:00 | NUR ---
PT LYING IN BED. VS STABLE. PT WALKED THE TERAN. TOLERATED WELL. STANDBY ASSIST WITH . PT STATED PAIN 5/10. AGREED TO TAKE TYLENOL. SAND TECHNOLOGIST PUMP INTACT. DENIES SOB. NO NUMBNESS OR TINGLING. MIDLINE DRESSING INTACT WITH A SMALL SHADOWING. BOWEL TONES HYPOACTIVE ON ALL 4 QUADRANTS. SOME SWELLING ON BILATERAL ARMS. IN ROOM. ASSESSMENT COMPLETE. I AND O'S DONE. NO FURTHER NEEDS AT THIS TIME. CALL LIGHT IN REACH.
--- NOTE | 2020-05-20 21:32 | NUR ---
CALL LIGHT ANSWERED. CALLS PULSE OX IS ALARMING. SPO2 NOTED 86-87% ON RA, pt DROWSY, AWAKENS TO VOICE. 2L OXYGEN BY NC APPLIED. pt USING MORPHINE METEOROLOGICAL TECHNICIAN AT THIS TIME. SPO2 INCREASES TO 98% ON 2L OXYGEN. CALL LIGHT IN REACH. NO ADDITIONAL REQUESTS.
--- NOTE | 2020-05-20 22:42 | NUR ---
PT LYING IN BED. EYES CLOSED. RR WNL WITH UNLABORED BREATHING. IN ROOM. CALL LIGHT IN REACH.
--- NOTE | 2020-05-21 00:17 | NUR ---
PT LYING IN BED. BRANCH SERVICE LEADER MED REPLACED WITH THIS RN AND CHARGE NURSE. PT STATES HAVING PAIN 6/10 WHEN GETTING OUT OF BED. EDUCATION GIVEN ON TAKING ORAL PAIN MEDS. MOTRIN PRN GIVEN PER REQUEST. PT VERBALIZED UNDERSTANDING. REPOSITIONED PT IN BED. IN ROOM. BEDPAN IN ROOM PER REQUEST. CALL LIGHT IN REACH.
--- NOTE | 2020-05-21 01:14 | NUR ---
PT LYING IN BED. EYES CLOSED. RR WNL WITH UNLABORED BREATHING.
--- NOTE | 2020-05-21 03:12 | NUR ---
PT LYING IN BED. EYES CLOSED. RR WNL WITH UNLABORED BREATHING. CALL LIGHT IN REACH. IN ROOM.
--- NOTE | 2020-05-21 03:40 | NUR ---
PT LYING IN BED. ASSISTED TO THE BATHROOM STANDBY WITH CANE AT BASELINE. PT DENIES PAIN. REPOSITIONED PT IN BED. ASSESSMENT COMPLETE. CALL LIGHT IN REACH. BED ALARM ON.
--- NOTE | 2020-05-21 05:05 | NUR ---
STANDBY ASSIST TO THE BATHROOM AND HALLWAY. PAIN AT 5/10. PRN PAIN MEDS GIVEN PER REQUEST. SLEPT THROUGHOUT THE NIGHT. REMAINS ON MORPHINE JOINERY MACHINIST. REPLACED SYRINGE. TOLERATING GENERAL DIET. DRESSING OVER MIDLINE ABDOMINAL DRESSING INTACT. NO CHANGES NOTED. SCD'S INTACT THROUGHOUT THE NIGHT.
--- NOTE | 2020-05-21 06:32 | NUR ---
IN TO GET VITALS, RN IN RM FOR PAIN MGNT, NO FURTHER NEEDS AT THIS TIME
--- NOTE | 2020-05-21 06:42 | NUR ---
PT LYING IN BED. STANDBY ASSIST TO THE BATHROOM. PT STATES HAVING PAIN 3/10 BUT TOLERABLE. STATED "I DONT WANT TO USE THE BOATSWAIN MATE ANYMORE, FEELING MUCH BETTER AND WANTS TO GO HOME." PRN TYLENOL GIVEN PER REQUEST. VS STABLE. I AND O'S COMPLETE. NO CHANGES ON MIDLINE DRESSING ON ABDOMEN. NEW IV BAG LR ADMINISTERED. REPOSITIONED PT IN BED. CALL LIGHT IN REACH. IN ROOM. CALL LIGHT IN REACH.
--- NOTE | 2020-05-21 07:05 | NUR ---
BEDSIDE HANDOFF REPORT RECEIVED FROM EXTERMINATION SUPERVISOR RN. PT SLEEPING, LEFT UNDISTURBED. MORPHINE GUSSET MAKER SETTINGS CHECKED, PT HAS RECEIVED 6MG SINCE GUSSET MAKER SYRINGE REPLACED.
--- NOTE | 2020-05-21 09:20 | NUR ---
PT RESTING IN BED, SBA TO BATHROOM, VOIDED. PT DENIES NAUSEA, TOLERTED FILL LIQUID DIET YESTERDAY, ADVANCED TO REGULAR DIET, BREAKFAST AT BEDSIDE. PT ON ROOM AIR, LUNG SOUNDS CLEAR. PT DENIES NEED FOR DEDICATED REGIONAL DRIVER OR NARCOTIC PAIN MEDICASTION AT THIS TIME, RATING PAIN 5/10 WITH MOVEMENT, GIVEN MOTRIN, DISCUSSED PAIN MANAGEMENT FOR THE DAY. PT WITH MIDLINE INCISION, SMALL AMOUNT OF DRAIANGE TO LOWER DRESSING. BOWEL TONES ACTIVE, DENIES PASSING FLATUS. CMS INTACT, SCDS IN PLACE. DISCUSSED PLAN OF CARE, PT TO WALK IN TERAN AFTER EATING BREAKFAST. PT HOPING TO DISCAHRGE TODAY, DISCUSSED WITH PT. PT DENIES OTHER NEEDS AT THIS TIME.
--- NOTE | 2020-05-21 11:14 | NUR ---
pt walked 2 laps in alarcon with carriage operator, now sitting in chair. tolerated breakfast.
--- NOTE | 2020-05-21 15:07 | NUR ---
PT SLEEPING, LEFT UNDISTURBED. PT HAS NOT USED MORPHINE ASSEMBLER SHOW MOTOR TODAY.
--- NOTE | 2020-05-21 15:30 | NUR ---
DR. RAMIREZ TO BEDSIDE TO EVALUATE PT. DR. RAMIREZ REMOVED DRESSING, OK TO SHOWER. DISCONTINUE MARINE PIPEFITTER AND IV FLUIDS. PLAN FOR DISCHARGE TOMORROW. PT GIVEN MOTRIN AND 1 TAB PERCOCET. FABRIC MACHINE OPERATOR TO ASSIST PT WITH SHOWER SET UP. PT DENIES OTHER NEEDS AT THIS TIME.
--- NOTE | 2020-05-21 15:32 | OR ---
[facility] [address], [place] [address] Signed DATE OF OPERATION: 05/16/2020 SURGEON: Madalyn Ramirez MD PREOPERATIVE DIAGNOSES: 1. Symptomatic ascites. 2. Large pelvic mass. 3. Elevated CA-19 tumor marker (74.9). POSTOPERATIVE DIAGNOSES: 1. Symptomatic ascites. 2. large pelvic mass. 3. Elevated CA-19 tumor marker (74.9). PROCEDURE: Right abdominal paracentesis ultrasound-guided (3 L). ANESTHESIA: Lidocaine 1%. INDICATIONS: This 54-year-old white woman is referred by Dr. Marcos Montalvo from [place] with abdominal distention, abdominal pain, and a CT scan finding of significant ascites and a 10 cm right adnexal mass. She was admitted last night, given intravenous fluids, has been on pain control and so forth, and a CA-125 was obtained, this is almost 75, highly concordant to ovarian cancer. For symptom control and for cytologic diagnosis, anticipating various treatment options. I have recommended paracentesis. The risks of bleeding, infection, bowel injury, and so forth were reviewed with her, she understands and wished to proceed. FINDINGS: Ultrasonographic assistance was undertaken. Direct interrogation of the peritoneal cavity with a needle was documented. Withdrawal of nearly 3 L of turbid, non-bloody, yellow fluid was undertaken with marked good symptomatic relief of her tense ascites. DESCRIPTION OF PROCEDURE: In her room with the patient in a semi-recumbent position after informed consent signatures and so forth, the right abdominal wall was interrogated with the [employer] ultrasound device. A clear area anticipated for paracentesis was well identified. The abdominal wall was prepared with chlorhexidine solution with sterile technique using Electronically Signed By: MADALYN RAMIREZ MD 05/21/20 1532 PATIENT NAME: THAIS MENDEZ OPERATIVE REPORT DATE OF : 67 REPORT #: [id number] PHYSICIAN: MADALYN RAMIREZ MD PCP: MARCOS MONTALVO MD REPORT IS CONFIDENTIAL AND NOT TO BE RELEASED WITHOUT AUTHORIZATION [facility] [address], [place] [address] Signed glove, gown, and so forth. Lidocaine 1% was injected over the right mid abdominal wall essentially in the anterior axillary line. A bit lateral to it was the entry point to the abdomen. Lidocaine 1% was injected locally and under ultrasonographic guidance with a sterile sleeve on the probe, the anesthetic was injected. Using a paracentesis catheter kit, the needle was directed into the peritoneal cavity. Aspiration showed somewhat turbid yellow fluid. A three-way stopcock system was used with the drainage catheter and back container bottles and 3 L of fluid was withdrawn without problem. She had marked improvement of her symptoms and softening of her abdominal wall, there is certainly still ascites fluid noted. Withdrawal of the catheter allowed for placement of a small Band-Aid. She tolerated procedure well. Cytologic evaluation be undertaken as soon as possible. I have reviewed this with Dr. Saez, the pathologist. MD BRANDON Garcia/ROSALIOL /[id number] cc: Marcos Montalvo MD Copies: MARCOS MONTALVO MD ~ Electronically Signed By: MADALYN RAMIREZ MD 05/21/20 1532 PATIENT NAME: VANESSATHAIS OPERATIVE REPORT DATE OF : 67 REPORT #: [id number] PHYSICIAN: MADALYN RAMIREZ MD PCP: MARCOS MONTALVO MD REPORT IS CONFIDENTIAL AND NOT TO BE RELEASED WITHOUT AUTHORIZATION
--- NOTE | 2020-05-21 16:59 | NUR ---
PATIENT TOOK A SHOWER WITH HER HUSBANDS ASSISTANCE, PATIEINT SAID SHE DID NOT WANT HER BEDDING CHANGED, AND DID NOT WANT A DRAWSHEET ON HER BED EITHER.
--- NOTE | 2020-05-21 18:12 | NUR ---
PT PAIN WELL CONTROLLED WITH MOTRIN AND PERCOCET, MORPHINE FINANCIAL INVESTIGATOR DISCONTINUED. PT TOLERATING DIET. WALKED IN TERAN AND TOOK SHOWER. IV SALINE LOCKED. MIDLINE INCISION DRESSING REMOVED, STERISTRIPS IN PLACE. PLAN FOR DISCHARGE TOMORROW.
--- NOTE | 2020-05-21 19:00 | NUR ---
PT LYING IN BED. SHIFT REPORT RECIEVED BY RN. CALL LIGHT IN REACH.
--- NOTE | 2020-05-21 21:39 | NUR ---
PT LYING IN BED. ASSESSMENT COMPLETE. I AND O'S DONE. SCHEDULED MEDS GIVEN. PRN PAIN MED TYLENOL GIVEN PER REQUEST. PAIN 5/10 TOLERBABLE. PT DENIES SOB. STERI STRIPS INTACT ON MIDLINE ABDOMEN AND OPEN TO AIR. BOWEL SOUNDS ACTIVE. PT STATES THAT SHE PASSED GAS RECENTLY. VS STABLE. CHICKEN BROTH GIVEN. CALL LIGHT IN REACH. NO FURTHER NEEDS.
--- NOTE | 2020-05-22 01:13 | NUR ---
STANDBY ASSIST TO THE BATHROOM. PT C/O PAIN 09/28. PRN PAIN MEDS GIVEN PER REQUEST. REPOSITIONED PT IN BED. STERI STRIPS INTACT ON MIDLINE ABDOMEN. NO FURTHER CHANGES AT THIS TIME. CALL LIGHT IN REACH. NO FURTHER NEEDS.
--- NOTE | 2020-05-22 02:59 | NUR ---
PT C/O PAIN 09/28. PRN PAIN MED GIVEN PER REQUEST. REPOSITIONED PT IN BED. CALL LIGHT IN REACH.
--- NOTE | 2020-05-22 05:00 | NUR ---
PT LYING IN BED. STATES THAT PAIN IS 3/10 AND TOLERABLE. ASSESSMENT COMPLETE. REPOSITIONED PT IN BED. STERI STRIPS INTACT ON MIDLINE ABDOMEN. NO CHANGES AT THIS TIME. CALL LIGHT IN REACH.
--- NOTE | 2020-05-22 08:00 | NUR ---
PATIENT IN BED, PATIENT WAS ASKED IF SHE WANTED BREAKFAST, SHE STATED SHE WASNT VERY HUNGRY AND THAT SHE WOULD JUST LIKE A FRUUIT PLATE AND CRANBERRY JUICE. SHE HAS ALREADY SHOWERED AND USED THE RESTROOM.
--- NOTE | 2020-05-22 08:00 | NUR ---
RECIEVED REPORT. PT AWAKE AND IN SHOWER. INDEPEDENT. NO NEEDS AT THIS TIME.
[2020-05-22] MEDS ORDERED: OXYCODON-ACETA1 EAC2 PO (09:23)
[2020-05-22] MEDS ORDERED: ACETAMINOPHEN500 MG PO (09:23)
[2020-05-22] MEDS ORDERED: IBUPROFEN600 MG PO (09:23)
[2020-05-22] MEDS ORDERED: MILK OF MA2400 MG/10 PO (09:24)
--- NOTE | 2020-05-22 09:45 | NUR ---
ASSESSMENT COMPLETED. DR RAMIREZ IN FOR ROUNDS. POC AND DISCHARGE DISCUSSED. PT UP FOR SECOND SHOWER. REPORTS SOME BELCHING, BUT PASSING LOTS OF FLATUS. NO BM. MOM ADMISNTERED PER DR MENDEZ. LUNGS DIM IN BASES. PT REPORTS SMALL AMOUNT OF BLOATING BUT NO NAUSEA. PAIN REPORTED 4/10. NO MEDICATION NEEDED. MIDLINE WELL APPROXIMATED WITH STERI STRIPS IN PLACE. WNL.
--- NOTE | 2020-05-22 10:14 | NUR ---
patient was in bed watching tv, patient didnt have to use the bathroom and was still snacking on her breakfast.
--- NOTE | 2020-05-22 10:55 | NUR ---
SPOKE WITH PATIENT IN ROOM. SHE HAS JUST FINISHED A SHOWER AND FEELS GREAT. SHE STILL PLANS TO DISCHARGE HOME WITH . DENIES CONCERNS ABOUT THIS, FEELS SAFE AND READY TO GO. SHE WILL LET NURSES KNOW IF SHE HAS ANY QUESTIONS THROUGH DISCHARGE PROCESS. HER WILL PROVIDE TRANSPORTATION HOME AND TO APPOINTMENTS.
--- NOTE | 2020-05-22 11:00 | NUR ---
PATIENT'S IV'S WERE D/C'D
--- NOTE | 2020-05-22 11:17 | NUR ---
PT LAYING IN BED, JUST FINISHED SHOWER. IS TO DC LATER TODAY- TO PICKUP FOLLOWING DC. GAVE BLESSING, WILL FOLLOW NEEDED
--- NOTE | 2020-05-22 11:24 | NUR ---
DISCHARGE INSTRUCTIONS PROVIDED INCLUDING, S/SX OF ILEUS, WHEN TO CALL DR, S/SX OF INFECTIONS, FOLLOW-UO APPOINTMENT, ACTIVITY RESTRICTIONS. PT WITH NO QUESTIONS.
== END 2020-05-22 11:20 | disposition home or self-care (01) | DRG 734 ==
LOC: MS 15:50
PROVIDERS: ADMIT Surgery; ATTEND Surgery
PROC: 0UT90ZZ Resection of Uterus, Open Approach (ICD-10-PCS; principal; 2020-05-15)
PROC: 07TC0ZZ Resection of Pelvis Lymphatic, Open Approach (ICD-10-PCS; 2020-05-15)
PROC: 0UT20ZZ Resection of Bilateral Ovaries, Open Approach (ICD-10-PCS; 2020-05-15)
PROC: 0UT70ZZ Resection of Bilateral Fallopian Tubes, Open Approach (ICD-10-PCS; 2020-05-15)
PROC: 0DBU0ZZ Excision of Omentum, Open Approach (ICD-10-PCS; 2020-05-15)
PROC: 0DTJ0ZZ Resection of Appendix, Open Approach (ICD-10-PCS; 2020-05-15)
PROC: 0UBF0ZX Excision of Cul-de-sac, Open Approach, Diagnostic (ICD-10-PCS; 2020-05-15)
PROC: 0BBT0ZX Excision of Diaphragm, Open Approach, Diagnostic (ICD-10-PCS; 2020-05-15)
PROC: 0W9G3ZZ Drainage of Peritoneal Cavity, Percutaneous Approach (ICD-10-PCS; 2020-05-16)
PROC: 3E0T3BZ Introduction of Anesthetic Agent into Peripheral Nerves and Plexi, Percutaneous Approach (ICD-10-PCS; 2020-05-19)
PROC: 3E0T33Z Introduction of Anti-inflammatory into Peripheral Nerves and Plexi, Percutaneous Approach (ICD-10-PCS; 2020-05-19)
DX: C56.2 Malignant neoplasm of left ovary (principal); R18.0 Malignant ascites; G89.18 Other acute postprocedural pain; Z20.822 Contact with and (suspected) exposure to COVID-19; N93.8 Other specified abnormal uterine and vaginal bleeding; Z88.8 Allergy status to other drugs, medicaments and biological substances; Z87.891 Personal history of nicotine dependence
CPT/HCPCS: 00790; 36415; 64488; 76942; 80048; 80053; 82247; 82465; 83615; 84100; 84478; 84550; 84703; 85025; 86304; 86850; 86900; 86901; A9270; C9803; J0131; J0330; J0694; J1100; J1644; J1885; J2001; J2250; J2270; J2300; J2405; J2704; J2795; J3475; J7121; U0003

== ENCOUNTER 2020-06-27 11:00 | Day surgery (SDC) | payer OTHER ==
[~2020-06-27] VITALS: Ht 170.2 cm; Wt 74.8 kg
--- NOTE | ~2020-06-27 | OR ---
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 POSTOPERATIVE DIAGNOSES: 1. Normal upper endoscopy except for hiatal hernia and distal esophagitis. 2. Small polyp of colon. No evidence of neoplasm of colon. PROCEDURES: 1. Esophagogastroduodenoscopy with biopsy. 2. Total colonoscopy to cecum with cold morcellation polypectomy of small polyp at rectosigmoid. ANESTHESIA: Intravenous sedation, fentanyl 150 mcg, Versed 8 mg. INDICATION: This 55-year-old white woman is a patient Dr. Marcos Montalvo and was referred to me with symptomatic ascites and finding of a giant pelvic mass. Her CA-125 was noted to be 74.9 and she was thought likely to have a primary ovarian malignancy. She underwent paracentesis. Cytology showed no evidence of malignant cells. She subsequently underwent excision of the left ovarian mass including treatment as if for ovarian cancer including abdominal hysterectomy, retroperitoneal lymph node dissection, peritoneal biopsy, omentectomy and right hemidiaphragm biopsy. All of the biopsied areas showed no evidence of malignant disease. Appendectomy was also performed. 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 The risks of bleeding, infection, perforation, and so forth were related to upper endoscopy and lower endoscopy were reviewed in detail. She understands and wished to proceed. FINDINGS: PATIENT NAME: THAIS MENDEZ OPERATIVE REPORT DATE OF : 67 REPORT #: [id number] PHYSICIAN: MADALYN RAMIREZ MD PCP: MARCOS MONTALVO MD REPORT IS CONFIDENTIAL AND NOT TO BE RELEASED WITHOUT AUTHORIZATION [facility] [address], [place] [address] Draft Upper endoscopy did show distal esophagitis and a hiatal hernia. Stomach was reasonably normal. There was mild bulbar duodenitis. There was no evidence of malignancy. Colonoscopy showed an excellent prep. Complete colonoscopy was undertaken to the cecum without question. She had no evidence of neoplasm, though she did have a small polyp of the rectosigmoid, which was excised. DESCRIPTION OF PROCEDURE: The patient was brought to the endoscopy suite and given topical lidocaine hypopharyngeal anesthesia and placed in lateral decubitus position. She was given intravenous sedation to the point of slurred speech and nystagmus. A bite block was placed. Full cardiopulmonary monitoring was maintained. An Olympus video upper endoscope was passed in the hypopharynx. The vocal cords appeared normal. Scope was advanced into the esophagus. Throughout its length, it was normal except in the distal portion where there was inflammatory change and minimal nodular change. The scope was advanced to the stomach, which was insufflated with air. Rugal folds were normal. Antrum was normal. Pylorus normal. Scope was passed into the duodenum. Second and 3rd portions were normal. The bulbar portion was mildly inflamed. Biopsies were obtained. The scope was withdrawn. A biopsy was taken of the antrum for both EBENEZER and pathologic testing. Retroflexed view was undertaken and upon withdrawal of scope, a hiatal hernia was noted as well as a small fundic diverticulum. The scope was straightened and withdrawn to the distal esophagus where minimal nodular changes of the esophagus were noted. Biopsies were obtained. There was no evidence of Hood's epithelium. Multiple such biopsies were obtained. The scope was withdrawn and the remaining esophagus was normal. Plans were then made for colonoscopy. The table was rotated and additional sedation given. Digital rectal examination was normal. The Olympus video colonoscope was passed in the rectum and manipulated throughout the colon ultimately intubating the cecum itself. The ileocecal valve and appendiceal orifice were normal. Scope was withdrawn from that point. Examination throughout showed no sign of polyps, specifically no sign of neoplasm until the rectosigmoid where a very small adenomatous-appearing polyp was noted. This was excised with cold morcellation technique. Further withdrawal of scope allowed for retroflexed view in the rectum. Rectum was normal. Scope was removed. The patient was taken to the recovery room in good condition. CONCLUDING DIAGNOSIS: No lesion to account for a Krukenberg tumor at this point. PLAN: PATIENT NAME: THAIS MENDEZ OPERATIVE REPORT DATE OF : 67 REPORT #: [id number] PHYSICIAN: MADALYN RAMIREZ MD PCP: MARCOS MONTALVO MD REPORT IS CONFIDENTIAL AND NOT TO BE RELEASED WITHOUT AUTHORIZATION [address] [address] Draft We will see the patient back in about 3 months repeating the tumor markers at that time. We will review further with medical oncologist, Dr. Garcia and others regarding whether or not additional studies should be undertaken. MD BRANDON Garcia/ROSALIOL /[id number] cc: Marcos Montalvo MD Copies: MARCOS MONTALVO MD ~ PATIENT NAME: THAIS MENDEZ OPERATIVE REPORT DATE OF : 67 REPORT #: [id number] PHYSICIAN: MADALYN RAMIREZ MD PCP: MARCOS MONTALVO MD REPORT IS CONFIDENTIAL AND NOT TO BE RELEASED WITHOUT AUTHORIZATION
[~2020-06-27 11:00] MED LIST: ACETAMINOPHEN500 MG PO; IBUPROFEN600 MG PO; MILK OF MA2400 MG/10 PO; OXYCODON-ACETA1 EAC2 PO
[2020-06-27] MEDS ORDERED: EXCEDRIN EXTRA1 EAC1 PO (11:34)
--- NOTE | 2020-06-27 14:51 | NUR ---
06/27/20 1451 Belia Allred 0037-PATIENT ARRIVED TO PACU ON 2L NC RR EVEN. PATIENT HAS EYES CLOSED BUT AROUSES AND ANSWERS QUESTIONS TO VERBAL STIMULI DENIES PAIN OR NAUSEA. ABDOMEN SOFT. ENCOURAGED TO PASS GAS. IVF INFUSING.
--- NOTE | 2020-06-28 11:16 | PATH ---
[facility] [address] [place], [place] [address] Signed SPECIMEN(S): A DUODENUM SPECIMEN(S): B DUODENAL BULB SPECIMEN(S): C ANTRUM/PYLORUS SPECIMEN(S): D GE JUNCTION SPECIMEN(S): E RECTOSIGMOID POLYP SPECIMEN SOURCE: A. DUODENUM B. DUODENAL BULB C. ANTRUM/PYLORUS D. GE JUNCTION E. RECTOSIGMOID POLYP CLINICAL HISTORY: Esophagogastroduodenoscopy, colonoscopy. Malignant tumor of ovary. Dx: Hiatal hernia distal esophagus, rectosigmoid polyp. MICROSCOPIC DESCRIPTION: Histologic sections of all submitted blocks are examined by light microscopy. These findings, together with the gross examination, support the pathologic diagnosis. FINAL PATHOLOGIC DIAGNOSIS: A. Duodenum, biopsy: - Duodenal mucosa with no histopathologic abnormality. - Negative for increased intraepithelial lymphocytes. - Negative for dysplasia or malignancy. B. Duodenum, bulb, biopsy: - Duodenal bulb type mucosa with changes consistent with peptic duodenitis. - Negative for increased intraepithelial lymphocytes. - Negative for dysplasia or malignancy. C. Stomach, antrum/pylorus, biopsy: - Oxyntic mucosa with no histopathologic abnormality. - Negative for Helicobacter organisms on HE stain. - Negative for dysplasia or malignancy. D. Gastroesophageal junction, biopsy: - Squamocolumnar junctional mucosa with chronic inflammation and reactive epithelial changes, consistent with reflux esophagitis. - Fragments of fibrinopurulent exudate. - Negative for viral cytopathic changes on HE stain. - Negative for intestinal metaplasia, dysplasia, or malignancy. E. Colon, rectosigmoid, polyp, polypectomy: PATIENT NAME: THAIS MENDEZ PATHOLOGY DATE OF : 67 REPORT #: [id number] PHYSICIAN: GABRIELLE PATHOLOGY PCP: MARCOS DAIGLE MD REPORT IS CONFIDENTIAL AND NOT TO BE RELEASED WITHOUT AUTHORIZATION [facility] [address] [place], [place] [address] Signed - Fragments of hyperplastic polyp. - Negative for dysplasia or malignancy. NAL:cml:C2NR GROSS DESCRIPTION: Five specimens are received in five containers labeled with "EP." A. The specimen, labeled "EP," and designated on the requisition "duodenum biopsy," is received in formalin and consists of one fragment of pink-oakes tissue (0.3 x 0.2 x 0.2 cm). The specimen is submitted entirely in cassette (A1). B. The specimen, labeled "EP," and designated on the requisition "duodenum bulb biopsy," is received in formalin and consists of one fragment of pink-oakes tissue (0.4 x 0.2 x 0.2 cm). The specimen is submitted entirely in cassette (B1). C. The specimen, labeled "EP," and designated on the requisition "antrum/pylorus biopsy," is received in formalin and consists of two fragments of pink-oakes tissue (0.5 x 0.2 x 0.2 cm in aggregate). The specimen is submitted entirely in cassette (C1). D. The specimen, labeled "EP," and designated on the requisition "GE junction biopsy," is received in formalin and consists of multiple fragments of white-oakes tissue (1.0 x 0.4 x 0.2 cm in aggregate). The specimen is submitted entirely in cassette (D1). E. The specimen, labeled "EP," and designated on the requisition "rectosigmoid polypectomy," is received in formalin and consists of three fragments of pink-oakes tissue (0.6 x 0.2 x 0.2 cm in aggregate). The specimen is submitted entirely in cassette (E1). AC (under the direct supervision of a pathologist The Gross Description was prepared using a voice recognition system. The report was reviewed for accuracy; however, sound-alike word errors, addition and/or deletions may occur. If there is any question about this report, please contact Client Services. PERFORMING LABORATORY: The technical component was performed by [address] [address] ([employer] Hand: Suzie Guzmán MD; CLIA# [id number]). [facility], [address] [place] [id number] (CLIA# [id number]). Diagnostician: Ida Saez MD PATIENT NAME: THAIS MENDEZ PATHOLOGY DATE OF : 67 REPORT #: [id number] PHYSICIAN: GABRIELLE LANE PCP: MARCOS DAIGLE MD REPORT IS CONFIDENTIAL AND NOT TO BE RELEASED WITHOUT AUTHORIZATION [facility] [address] [place], [place] [address] Signed Pathologist Electronically Signed 06/28/2020 Copies: ~ PATIENT NAME: THAIS MENDEZ PATHOLOGY DATE OF : 67 REPORT #: [id number] PHYSICIAN: GABRIELLE LANE PCP: MARCOS DAIGLE MD REPORT IS CONFIDENTIAL AND NOT TO BE RELEASED WITHOUT AUTHORIZATION
== END 2020-06-27 15:35 | disposition home or self-care (01) ==
LOC: OPS 11:00 → DS 13:00 → OPS 13:00
PROVIDERS: ATTEND Surgery
PROC: 0DB98ZZ Excision of Duodenum, Via Natural or Artificial Opening Endoscopic (ICD-10-PCS; principal; 2020-06-27 12:00)
PROC: 0DBN8ZZ Excision of Sigmoid Colon, Via Natural or Artificial Opening Endoscopic (ICD-10-PCS; 2020-06-27 12:00)
DX: C56.2 Malignant neoplasm of left ovary (principal); K63.5 Polyp of colon; K20.90 Esophagitis, unspecified without bleeding; K44.9 Diaphragmatic hernia without obstruction or gangrene; K29.80 Duodenitis without bleeding; K31.4 Gastric diverticulum; Z87.891 Personal history of nicotine dependence
CPT/HCPCS: 99153; G0500; J2250; J3010; J7121

== ENCOUNTER 2024-12-07 13:45 | Emergency (ER) | payer OTHER ==
[~2024-12-07] VITALS: Ht 170.2 cm; Wt 72.7 kg
[~2024-12-07 13:45] MED LIST changes: +EXCEDRIN EXTRA1 EAC1 PO
--- OUTSIDE RECORDS SUMMARY | 2024-12-07 13:48 | XMS ---
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 Kassi VISIT COUNT (12 MO.) 1 ARTIE Calderon [place] TOTAL 2 NOTE: Visits indicate total known visits. ED/UCC VISIT TRACKING (12 MO.) 12/07/2024 13:46 [facility] [place] TYPE: Emergency COMPLAINT: - [facility]AL [facility] [place] [facility]: Emergency INPATIENT VISIT TRACKING (12 MO.) No inpatient visits to display in this time frame [email or web address]
[2024-12-07] MEDS ORDERED: ONDANSETRON ODT4 MG PO (14:01)
[2024-12-07] MEDS ORDERED: FENTANYL 25 MCG/HR 1 EA TDSY TD ONE (14:15)
[2024-12-07] MEDS ORDERED: FENTANYL1 EACH TD (15:32)
[2024-12-07] MEDS ORDERED: VENTOLIN HFA18 GM INH (15:55)
[2024-12-07 16:29] VITALS: BP 155/99
[2024-12-10] MEDS ORDERED: fentaNYL 1 EACH TDSY TD SCH (09:00)
== END 2024-12-07 16:29 | disposition home or self-care (01) ==
LOC: ED 13:45
DX: R18.8 Other ascites (principal); Z88.8 Allergy status to other drugs, medicaments and biological substances; Z87.891 Personal history of nicotine dependence
CPT/HCPCS: 71045; 99284-25

== ENCOUNTER 2024-12-09 12:08 | Emergency (ER) | payer OTHER ==
[~2024-12-09] VITALS: Ht 170.2 cm; Wt 72.7 kg
[~2024-12-09 12:08] MED LIST changes: +FENTANYL1 EACH TD; +ONDANSETRON ODT4 MG PO; +VENTOLIN HFA18 GM INH
--- OUTSIDE RECORDS SUMMARY | 2024-12-09 12:15 | XMS ---
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 No recent Security Events currently on file CRITERIA MET - [facility] - 2 Visits in 30 Days CARE PROVIDERS Mireya Smalls [facility] 11/29/2024-Current PHONE: [phone] -, [facility]ist: Bracelet Maker Novelty Current [place] PHONE: [phone] -Felice- Dentist: Bracelet Maker Novelty Current [facility] PHONE: [phone] [facility]/Center: [facility] FAMILY PHONE: [phone] MARCOS DAIGLE Emergency Medicine Current PHONE: [phone] Freddie has no Care Guidelines for this patient. Kassi VISIT COUNT (12 MO.) 2 ARTIE Chopra - [place] TOTAL 3 NOTE: Visits indicate total known visits. ED/UCC VISIT TRACKING (12 MO.) 12/09/2024 12:09 [facility] [place] TYPE: Emergency COMPLAINT: - AMDOMINAL PAIN 12/07/2024 13:46 [facility] [place] TYPE: Emergency COMPLAINT: - ADOMINAL PAIN 12/05/2024 08:44 [facility] - [place] TYPE: Emergency INPATIENT VISIT TRACKING (12 MO.) No inpatient visits to display in this time frame [email or web address]
[2024-12-09 14:54] LABS: BASOPHILS 0.7 % (0.1-1.2); EOSINOPHILS 2.2 % (0.7-5.8); LYMPHOCYTES 18.4 % (19.3-51.7); MCH 29.7 PG (25.6-32.2); MCHC 33.0 g/dL (32.2-35.5); MCV 90.2 fL (79.4-94.8); MONOCYTES 8.1 % (4.7-12.5); NEUTROPHILS 70.3 % (34.0-71.1); RBC 4.91 M/uL (3.93-5.22)
[2024-12-09 15:22] LABS: ALT (SGPT) 111.0 U/L (14-59); AST (SGOT) 77.0 U/L (15-37); GLOMERULAR FILTRATION RATE,EST 103.0 mL/min (>60); PROTEIN, TOTAL 7.6 g/dL (6.4-8.2); UREA NITROGEN 13.0 mg/dL (7-18)
[2024-12-09 15:42] VITALS: BP 149/91
== END 2024-12-09 15:44 | disposition home or self-care (01) ==
LOC: ED 12:08
PROVIDERS: Emergency Medicine
DX: R18.8 Other ascites (principal); Z87.891 Personal history of nicotine dependence; Z88.8 Allergy status to other drugs, medicaments and biological substances; Z79.899 Other long term (current) drug therapy
CPT/HCPCS: 36415; 49083; 80053; 85025; 87070; 87205; 89051; 99284-25